=== PATIENT | male | born 1945 | race Caucasian/White ===

== ENCOUNTER 2020-06-28 09:00 | Outpatient (RCR) | payer MEDICARE ==
[~2020-06-28] VITALS: Ht 173 cm; Wt 83.0 kg
[2020-06-28] MEDS ORDERED: MAGN400T7 PO (09:28)
[2020-06-28] MEDS ORDERED: MULT-1029 PO (09:28)
[2020-06-28] MEDS ORDERED: ATOR20TA66 PO (09:28)
[2020-06-28] MEDS ORDERED: METF-398 PO (09:28)
[2020-06-28] MEDS ORDERED: DIPH25TA65 PO (09:28)
[2020-06-28] MEDS ORDERED: TR1C15 TP (09:28)
[2020-06-28] MEDS ORDERED: CALC-794 PO (09:28)
[2020-06-28] MEDS ORDERED: BIMA2.5D4 OP (09:28)
[2020-06-28] MEDS ORDERED: LOSA25TA41 PO (09:28)
== END 2020-07-02 09:49 | disposition home or self-care (01) ==
LOC: PREOP 09:00
PROVIDERS: ATTEND Surgery
DX: Z01.818 Encounter for other preprocedural examination (principal); Z12.11 Encounter for screening for malignant neoplasm of colon

== ENCOUNTER 2020-07-04 09:44 | Day surgery (SDC) | payer MEDICARE, OTHER ==
[~2020-07-04] VITALS: Ht 173 cm; Wt 80.0 kg
[2020-07-04] VITALS (16 sets, daily range): BP systolic 113–171; BP diastolic 59–92
[~2020-07-04 09:44] MED LIST: ATOR20TA66 PO; BIMA2.5D4 OP; CALC-794 PO; DIPH25TA65 PO; LOSA25TA41 PO; MAGN400T7 PO; METF-398 PO; MULT-1029 PO; TR1C15 TP
[2020-07-04] MEDS ORDERED: NS IV 500 ML 500 ML ONE (10:07)
[2020-07-04] MEDS ORDERED: MIDAZOLAM 5 MG/5 ML (VERSED) VIAL IV ONE (10:15)
[2020-07-04] MEDS ORDERED: NS IV 500 ML 500 ML IV PRN (10:15)
[2020-07-04] MEDS ORDERED: fentaNYL INJECTION 100 MCG/2 ML AMP IVP ONE (10:15)
[2020-07-04] MEDS ORDERED: LIDOCAINE JELLY 2% 6 ML SYRINGE MM PRN (10:15)
--- NOTE | 2020-07-04 10:19 | Conscious Sedation/ASA ---
Conscious Sedation Pre-Proced Time 10:00 ASA Score 2 For ASA 3 and 4: Consider anesthesia and medical clearance. Also, for patients with a history of failed moderate sedation consider anesthesia. Airway Lungs Heart ASA score ASA 1: a normal healthy patient ASA 2: a patient with a mild systemic disease (mid diabetes, controlled hypertension, obesity ASA 3: a patient with a severe systemic disease that limits activity (angina, COPD, prior Myocardial infarction) ASA 4: a patient with an incapacitating disease that is a constant threat to life (CHF, renal failure) ASA 5: a moribund patient not expected to survive 24 hrs. (ruptured aneurysm) ASA 6: a declared brain- patient whose organs are being harvested. For emergent operations, add the letter E after the classification Mallampati Classification Grade 2 Sedation Plan Analgesia, Amnesia, Plan communicated to team members, Discussed options with patient/fam, Discussed risks with patient/fam The patient is an appropriate candidate to undergo the planned procedure, sedation, and anesthesia. The patient immediately re-assessed prior to indication. RAUDEL BROWN MD Jul 04, 2020 10:19
--- NOTE | 2020-07-04 10:21 | Progress Note-Pre Operative ---
Pre-Operative Progress Note H&P Reviewed The H&P was reviewed, patient examined and no changes noted. Date Seen by Provider: Jul 04, 2020 Time Seen by Provider: 10:00 Date H&P Reviewed: Jul 04, 2020 Time H&P Reviewed: 10:00 Pre-Operative Diagnosis: RAUDEL Mckeon MD Jul 04, 2020 10:21
--- NOTE | 2020-07-04 10:22 | Discharge Inst-Surgical ---
D/C Lap Instructions-STEPHANIE Follow Up Appt in 2 weeks Activity as tolerated High Fiber Diet 25g or more per day Avoid Alcohol, Caffeine, Spicy [place] and Acid foods. Drink 64 fluid oz or more of fluids per day. Symptoms to Report: Fever over 101 degree F, Nausea/Vomiting If any problems/questions: Contact your physician or go to Emergency Room RAUDEL BROWN MD Jul 04, 2020 10:22
[2020-07-04] MEDS ORDERED: LIDOCAINE JELLY 2% 6 ML SYRINGE ONE (10:27)
[2020-07-04] MEDS ORDERED: MIDAZOLAM 5 MG/5 ML (VERSED) VIAL ONE ×2 (10:27)
[2020-07-04] MEDS ORDERED: fentaNYL INJECTION 100 MCG/2 ML AMP ONE (10:28)
[2020-07-04] MEDS ORDERED: morphine INJ 10 MG/ML 1ML (SYR OR VIAL) IVP PRN ×2 (10:30)
[2020-07-04] MEDS ORDERED: HYDROcodone/APAP 5 MG/325 MG (LORTAB) TAB PO PRN (10:30)
[2020-07-04] MEDS ORDERED: ONDANSETRON 4 MG/2 ML (SDV) Z0FRAN IVP PRN (10:30)
[2020-07-04] MEDS ORDERED: ACETAMINOPHEN 325 MG TABLET PO PRN (10:30)
--- NOTE | 2020-07-04 12:09 | Progress Note-Post Operative ---
Post-Operative Progess Note Surgeon (s)/Automotive Customer Experience Advisor (s) Surgeon RAUDEL BROWN MD Automotive Customer Experience Advisor: none Pre-Operative Diagnosis screening Post-Operative Diagnosis mild chronic stage 2 ext and int hemorrhoids. Procedure & Operative Findings Date of Procedure 07/04/20 Procedure Performed/Findings colonoscopy Anesthesia Type cs Estimated Blood Loss Estimated blood loss (mL): minimal Specimens/Packing Specimens Removed none RAUDEL BROWN MD Jul 04, 2020 12:09
--- NOTE | 2020-07-04 18:16 | OPERATIVE REPORT ---
DATE OF SERVICE: 07/04/2020 ATTENDING PRIMARY CARE: Dr. Torin Lazar. PREOPERATIVE DIAGNOSIS: Screening colonoscopy. POSTOPERATIVE DIAGNOSIS: Mild chronic stage II external and internal hemorrhoids. PROCEDURE PERFORMED: Colonoscopy. SURGEON: Raudel Brown MD. ANESTHESIA: Conscious sedation. ESTIMATED BLOOD LOSS: Minimal. FINDINGS: Mild chronic stage II external and internal hemorrhoids. Remainder of the rectum and colon were normal. DISPOSITION: The patient tolerated the procedure well. INDICATIONS FOR PROCEDURE: The patient is a 75-year-old male in need of a screening colonoscopy. He has had previous colonoscopies in the past with his last one being approximately 10 years ago. He does not report any major issues with diarrhea nor constipation as well as no red blood per rectum nor any dark tarry stools. He also does not report any family history of colon cancer. DESCRIPTION OF PROCEDURE: The patient was brought to the endoscopy suite and laid in the left lateral decubitus position. After adequate IV pain and sedative medications and conscious sedation anesthesia, a digital rectal examination was performed. Mild chronic stage II external and internal hemorrhoids were identified, which were not actively edematous nor inflamed and no bleeding. Normal sphincter tone was felt and there were no palpable masses. Prostate gland was palpable and appeared normal. The endoscope was then intubated and anus and rectum gently insufflated. The endoscope was then advanced through the valves of Mcghee and the rectum with no polyps or any neoplasms identified. We then proceeded through the sigmoid colon, where no diverticulosis identified. The endoscope was then advanced to the remainder of the descending, transverse and ascending colon to the cecum. These segments were normal. No polyps or any neoplasms were identified. The endoscope was then slowly withdrawn while taking a second look and suctioning of residual air with no additional findings. The patient tolerated the procedure well. We will recommend continued medical management with a high fiber diet with at least 30 grams of fiber daily as well as significant amounts of water to promote soft stools on a daily basis. If he is asymptomatic, he does not need another colonoscopy for another 10 years. Job ID: [id number] DocumentID: [id number] Dictated Date: 07/04/2020 11:55:34 Dial Buffer Date: 07/04/2020 18:15:48 Dictated By: RAUDEL BROWN MD
== END 2020-07-04 12:45 | disposition home or self-care (01) ==
LOC: ENDO 09:44
PROVIDERS: ATTEND Surgery
DX: Z12.11 Encounter for screening for malignant neoplasm of colon (principal); K64.1 Second degree hemorrhoids; I10 Essential (primary) hypertension; E78.00 Pure hypercholesterolemia, unspecified; E11.9 Type 2 diabetes mellitus without complications; Z79.84 Long term (current) use of oral hypoglycemic drugs; Z79.899 Other long term (current) drug therapy; Z80.1 Family history of malignant neoplasm of trachea, bronchus and lung; Z80.41 Family history of malignant neoplasm of ovary

== ENCOUNTER → 2022-01-08 | Outpatient (CLI) | payer MEDICARE, OTHER ==
[~2022-01-08] MED LIST changes: +ALBU8.5H9 IH; +CATHETER FLUSH 10 ML SYR IVP PRN
[2022-01-08 12:18] VITALS: BP 152/82
--- NOTE | 2022-01-09 11:45 | Cardiology Stress Test Report ---
Stress Test Report Date of Procedure/Referring: Date of Procedure: Jan 08, 2022 PCP No,Local Physician Admitting Physician Admitting Physician: Attending Physician: Ruben Mathew MD Indications: HTN Baseline Heart Rate: 64 Baseline Blood Pressure: Blood Pressure Systolic: 152 Blood Pressure Diastolic: 82 Vital Signs Date Time Temp Pulse Resp B/P (MAP) Pulse Ox O2 Delivery O2 Flow Rate FiO2 01/08/22 12:18 64 152/82 (105) 98 Baseline Vital Signs Vital Signs Date Time Temp Pulse Resp B/P (MAP) Pulse Ox O2 Delivery O2 Flow Rate FiO2 01/08/22 12:18 64 152/82 (105) 98 Baseline EKG: Baseline EKG: NSR Summary: After explaining the procedure and details to the patient, he signed the consent and was brought to the stress nuclear laboratory. Patient exercised on standard Jerome protocol, EKG, heart rate and blood pressure were monitored continuously, resting and stress doses of radio tracer were injected, imaging was acquired and reviewed in the short axis, horizontal long axis and vertical long axis views Patient was able to exercise for a total of 7 minutes on Jerome protocol, METs 8.5 Maximum heart rate 131 Maximum blood pressure 213/72 Stress EKG, Minimal nondiagnostic changes Recovery EKG, Return to baseline TID: 0.95 SSS: 12 SDS: 6 EF: 56 Conclusion: 1. Fair exercise tolerance for a total of 7 minutes on Jerome protocol 8.5 METS achieving 92% of maximum expected heart rate 2. Hypertensive response to exercise with peak blood pressure 213/72 3. Nondiagnostic EKG changes with exercise return to baseline during recovery 4. Reversible ischemia involving the anterior wall and inferoseptum 5. Normal left ventricular size, ejection fraction 56% RUBEN MATHEW MD Jan 09, 2022 11:45
== END ==
LOC: CARD 10:30
PROVIDERS: ATTEND Internal Medicine Cardiovascular Disease
DX: I10 Essential (primary) hypertension (principal); I25.10 Atherosclerotic heart disease of native coronary artery without angina pectoris
CPT/HCPCS: 78452; 93017; 93306; A9502

== ENCOUNTER 2022-01-15 07:04 | Day surgery (SDC) | payer MEDICARE, OTHER ==
[~2022-01-15] VITALS: Ht 172.7 cm; Wt 84.8 kg
[2022-01-15] VITALS (8 sets, daily range): BP systolic 101–170; BP diastolic 67–98
[~2022-01-15 07:04] MED LIST changes: -ALBU8.5H9 IH; -CATHETER FLUSH 10 ML SYR IVP PRN
[2022-01-15] MEDS ORDERED: HEParin (CATH LAB) 2,000 ML IV ONE (07:06)
[2022-01-15] MEDS ORDERED: NS IV 1000 ML 1,000 ML ONE (07:06)
[2022-01-15] MEDS ORDERED: LIDOCAINE 1% INJ 20 ML VIAL ONE (07:06)
[2022-01-15] MEDS ORDERED: NS IV 1000 ML 1,000 ML IV SCH ×2 (07:15→10:00)
[2022-01-15 07:38] LABS: HEMATOCRIT 46 % (40-54); HEMOGLOBIN 15.5 g/dL (13.3-17.7); MEAN CORPUSCULAR HEMOGLOBIN 30 pg (25-34); MEAN CORPUSCULAR HGB CONC 34 g/dL (32-36); MEAN CORPUSCULAR VOLUME 88 fL (80-99); MEAN PLATELET VOLUME 9.4 fL (9.0-12.2); PLATELET COUNT 229 10^3/uL (130-400); WHITE BLOOD COUNT 6.9 10^3/uL (4.3-11.0)
[2022-01-15 07:43] LABS: BILIRUBIN,URINE NEGATIVE (NEGATIVE); CLARITY,URINE CLEAR; COLOR,URINE YELLOW; GLUCOSE, URINE (UA) 1+ (NEGATIVE); KETONES,URINE NEGATIVE (NEGATIVE); LEUKOCYTE ESTERASE ,URINE NEGATIVE (NEGATIVE); NITRITE,URINE NEGATIVE (NEGATIVE); PH,URINE 5.5 (5-9); PROTEIN,URINE NEGATIVE (NEGATIVE)
[2022-01-15] MEDS ORDERED: VERAPAMIL 5 MG/2 ML (CALAN) VIAL IV ONE (07:46)
[2022-01-15] MEDS ORDERED: HEParin 1000 UNIT/ML (10ML VIAL) FOR BOLUS ONE (07:46)
[2022-01-15] MEDS ORDERED: MIDAZOLAM 5 MG/5 ML (VERSED) VIAL ONE (07:46)
[2022-01-15] MEDS ORDERED: fentaNYL INJ 100 MCG/2 ML AMP ONE (07:46)
[2022-01-15 07:47] LABS: INR 0.9 (0.8-1.4); PROTHROMBIN TIME PATIENT 12.6 SEC (12.2-14.7)
[2022-01-15] MEDS ORDERED: NITRO DRIP 25000 MCG/D5W 250 ML IV ONE (07:47)
[2022-01-15 07:56] LABS: BACTERIA,URINE NEGATIVE /HPF; RBC,URINE RARE /HPF; SQUAMOUS EPITHELIAL CELL,UR RARE /HPF; WBC,URINE RARE /HPF
[2022-01-15 07:57] LABS: ALBUMIN 4.4 GM/DL (3.2-4.5); BILIRUBIN,TOTAL 0.5 MG/DL (0.1-1.0); CALCIUM 9.7 MG/DL (8.5-10.1); CREATININE SERUM 1.13 MG/DL (0.60-1.30)
[2022-01-15] MEDS ORDERED: ALBU8.5H9 IH (08:00)
--- NOTE | 2022-01-15 08:21 | Diagnostic Imaging Report ---
EXAMINATION: Chest radiograph, portable AP view. DATE: 01/15/2022 7:36 AM INDICATION: 76-year-old male, history of chest pain. COMPARISON: None. FINDINGS: Heart size and mediastinal contours are unremarkable. There is no identified pneumothorax. There is no large pleural effusion. There is no identified focal airspace consolidation. There are anchors in the region of the right humeral head. IMPRESSION: 1. No identified acute cardiopulmonary abnormality. Dictated by: Dictated on workstation # [id number]
--- NOTE | 2022-01-15 09:11 | Conscious Sedation/ASA ---
Conscious Sedation Pre-Proced Time 09:11 ASA Score 3 For ASA 3 and 4: Consider anesthesia and medical clearance. Also, for patients with a history of failed moderate sedation consider anesthesia. Airway Lungs Heart ASA score ASA 1: a normal healthy patient ASA 2: a patient with a mild systemic disease (mid diabetes, controlled hypertension, obesity x ASA 3: a patient with a severe systemic disease that limits activity (angina, COPD, prior Myocardial infarction) ASA 4: a patient with an incapacitating disease that is a constant threat to life (CHF, renal failure) ASA 5: a moribund patient not expected to survive 24 hrs. (ruptured aneurysm) ASA 6: a declared brain- patient whose organs are being harvested. For emergent operations, add the letter E after the classification Mallampati Classification Grade 3 Sedation Plan Analgesia, Amnesia, Plan communicated to team members, Discussed options with patient/fam, Discussed risks with patient/fam The patient is an appropriate candidate to undergo the planned procedure, sedation, and anesthesia. The patient immediately re-assessed prior to indication. RUBEN TIPTON MD Jan 15, 2022 09:11
[2022-01-15] MEDS ORDERED: METF-398 PO (10:00)
--- NOTE | 2022-01-15 10:00 | Discharge Inst-Post CATH ---
Discharge Inst-CATH/EP Problems Reviewed?: Yes Post Cardiac Cath/EP D/C Inst Follow Up/Plan Hold metformin for [address] Mathew's office in 2 to 4 weeks <b>CARDIAC CATH/EP PROCEDURE DISCHARGE INSTRUCTIONS</b> ACTIVITY * Go Home directly and rest. * Limit activity of the leg (or wrist if it was used) for 7 days including aerobics, swimming, jogging, bicycling, etc. * Restrict stair-climbing for 7 days if possible, if not, climb up with your non-cath leg, then bring together on the same step. * Avoid lifting, pushing, pulling or excessive movement of the affected extremity for 7 days. * Customary sexual activity may be resumed after 2 days-use caution not to use a position that strains or causes pain to the affected extremity. * No driving for 24 hours. * NO SMOKING. * Avoid straining for bowel movements for 7 days. * Gentle walking on level ground is allowed. * Returning to work will depend on the type of procedure and the results. Your doctor will discuss this with you. CALL YOUR DOCTOR FOR ANY OF THE FOLLOWING: *If bleeding from the puncture site occurs- Apply gentle pressure to site with clean cloth and call your doctor or EMS. * If a knot or lump forms under the skin, increases in size, or causes pain. * If bruising appears to be worsening or moving further down your leg instead of disappearing. * Temperature above 101 F. CARE OF YOUR GROIN INCISION; * Bruising or purple discoloration of the skin near the puncture site is common. * You may shower only, no bathtub bathing for 5 days. Be careful to avoid slipping as your leg may feel stiff. * If a closure device was used on your femoral artery, please see the attached guide regarding care of the device and your leg. * Leave dressing on FOR 24 hours. CARE OF YOUR WRIST INCISION; * Bruising or purple discoloration of the skin near the puncture site is common. * You may shower. * DO NOT submerge wrist. * Leave dressing on FOR 24 hours. RUBEN MATHEW MD Jan 15, 2022 10:00
--- NOTE | 2022-01-15 10:07 | Cardiac Cath Report ---
Cardiac Cath Report Physician (s)/Metal Turner (s) Physician RUBEN TIPTON MD Pre-Procedure Diagnosis Pre-Procedure Diagnosis: Coronary artery disease Post-Procedure Note Procedure Start Date: Jan 15, 2022 Name of Procedure: Left heart catheterization Findings/Procedure Note PROCEDURE NOTE: 76-year-old gentleman with history of hypertension, diabetes mellitus, had an abnormal stress test, scheduled for cardiac catheterization possible PTCA. After explaining the procedure to the patient, all pros and cons were explained, all questions were answered. The patient signed the consent and then he was placed on the cardiac catheterization laboratory. Groin was prepped SL fashion local anesthesia was used. Sheath placed in the right radial artery, [place] catheter was advanced to the left ventricular cavity, pressure was measured, engage the left coronary system and angiogram was done, could not achieve an adequate engagement with the catheter, I exchanged the catheter to a Esequiel right guide. Exchanged over a long wire and advanced to the right coronary artery, angiogram was done. At the end of the procedure the sheath was removed. Vascular band was used FINDINGS: Hemodynamics LV 93/6, end-diastolic pressure of 6 Aorta 92/62 mean of 74 ANATOMY: Left Main is free of obstructive disease Left Anterior Descending has slow flow due to small vessel disease nonobstructive disease Left Circumflex has slow flow due to small vessel disease nonobstructive disease Right Coronary Artery is dominant artery with 50% stenosis in the mid right coronary artery, nonobstructive disease LV Gram was not done, pressure was measured, known ejection fraction from the stress test to be 56% CONCLUSION: 1. Slow flow in the left coronary system due to small vessel disease, 50% stenosis in the mid right coronary artery, nonobstructive disease 2. Normal left ventricular end-diastolic pressure, known ejection fraction from the stress test to be 56% DISCUSSION AND RECOMMENDATION: Conservative management is recommended, continue to maximize medical therapy Anesthesia Type: Conscious Sedation Estimated blood loss (mL): 10 ml Contrast Amount: 31 ml Total Radiation Dose: 381 mGy Post-Procedure Diagnosis Post-operative diagnosis: Coronary artery disease Hypertension Diabetes mellitus RUBEN TIPTON MD Jan 15, 2022 10:07
== END 2022-01-15 12:50 | disposition home or self-care (01) ==
LOC: CATH 07:04 → SDC 10:06 → CATH 12:50
PROVIDERS: ATTEND Internal Medicine Cardiovascular Disease
DX: I25.10 Atherosclerotic heart disease of native coronary artery without angina pectoris (principal); I10 Essential (primary) hypertension; E11.9 Type 2 diabetes mellitus without complications; Z86.16 Personal history of COVID-19; E78.5 Hyperlipidemia, unspecified; Z79.899 Other long term (current) drug therapy; Z79.84 Long term (current) use of oral hypoglycemic drugs
CPT/HCPCS: 71045; 80053; 80061; 81000; 85027; 85610; 85730; 87081; 93005; 93458; C1887; C1894; 36415